=== PATIENT | male | born 1985 | race Caucasian/White ===

== ENCOUNTER 2021-10-28 06:41 | Emergency (ER) | payer OTHER, SELFPAY ==
[2021-10-28 06:44] VITALS: BP 140/115; PULSE 76; RESP 16; TEMP 36.4; O2SAT 98; BMI 31.6
[2021-10-28] MEDS: 0.9% Normal Saline 1,000 ML 1000 ML IV (07:31)
[2021-10-28] MEDS: Ondansetron 4 MG/2 ML Vial IV (07:32)
[2021-10-28] MEDS: Famotidine 200 MG/20 ML MDV 20 MG in 0.9% Normal Saline (Pres. free 8 ML 300 MG IV (07:32)
[2021-10-28] MEDS: Mag Hydrox/Al Hydrox/Simeth 30 ML UDC PO (07:32)
--- NOTE | 2021-10-28 07:35 | EX.ED.DYSGE1 ---
HPI History of Present Illness Chief Complaint: Abd Pain Narrative Narrative: Patient presents with epigastric pain that started about 2 weeks ago it is intermittent, he has had some nausea but no vomiting. His pain is worse when he eats. The pain does radiate to his back slightly, he has no right upper quadrant pain. He has no lower abdominal pain. No chest pain. No recent fevers or chills. He denies alcohol use, he is on a PPI, omeprazole, however he has not taken it in about a week due to the nausea. [facility] Medical History PTSD (post-traumatic stress disorder) Home Medications ondansetron 4 mg disintegrating tablet 4 mg PO Q8H #20 tabs 10/28/21 [Rx Last Taken Unknown] sucralfate 1 gram tablet (Carafate) 1 g PO BID #30 tabs 10/28/21 [Rx Last Taken Unknown] Allergy/AdvReac Type Severity Reaction Status Date / Time Penicillins [PCN] Allergy PT UNSURE Verified 10/28/21 06:42 OF REACTION Social History Smoking Status: Current every day smoker tobacco type: cigarettes ROS ROS ED ROS Narrative Past medical history: Reviewed, includes GERD and PTSD Medications: Reviewed Social history: Noncontributory Review of systems: All systems negative except as indicated General: No fever Eyes: No visual changes ENT: No upper airway congestion, normal voice Neck: No neck pain Cardiovascular: No chest pain Respiratory: No shortness of breath or cough Gastrointestinal: As in HPI Genitourinary: No dysuria Musculoskeletal: Denies myalgias no difficulty with ambulation Skin: No rash Neurological: No memory loss, confusion or any focal weakness Psych: No recent behavioral changes Hematologic: No easy bleeding or easy bruising EXAM Physical Exam Narrative Exam Narrative: Physical exam General: Well nourished, Well developed, No Acute Distress Head: Normocephalic, Atraumatic Eyes: Conjunctiva not pale ENT: Slightly dry mucous membranes Neck: Supple, Nontender, No lymphadenopathy Cardiovascular: Regular rate, Regular rhythm Respiratory: No distress, CTA bilaterally Abdomen: Soft, there is some epigastric tenderness, no guarding or rebound. No right upper quadrant abdominal pain negative Arriaga's. No lower abdominal pain. Back: Nontender, Normal Inspection. Negative for: CVA tenderness Extremities: Nontender, No edema Skin: Normal color, No rash Neurological: Alert, Normal Strength, Normal Sensation Psychological: Normal affect Const Vital Signs: 10/28/21 06:44 Temperature 97.6 F L Temperature Source Temporal Pulse Rate 76 Respiratory Rate 16 Blood Pressure 140/115 H Blood Pressure Mean 123 Pulse Ox 98 Oxygen Delivery Method Room Air MDM MDM MDM Narrative Medical decision making narrative: Patient has an unremarkable work-up. He did get some improvement with fluids Zofran and a GI cocktail. I will discharge him with Carafate, as well as Zofran. He is told to start taking his omeprazole, I will refer him to GI since I do believe he needs endoscopy. I do not believe this is gallbladder in etiology, he does not have any right upper quadrant pain and his labs are normal thus I do not believe he needs an emergent right upper quadrant ultrasound at this time. Lab Data Labs: Laboratory Results - last 24 hr 10/28/21 10/28/21 07:30 07:30 WBC 8.5 RBC 4.52 L Hgb 14.4 Hct 41.1 MCV 90.9 MCH 31.9 MCHC 35.0 RDW Std Deviation 42.1 RDW Coeff of [place] 12.7 Plt Count 207 MPV 11.7 Immature Gran % (Auto) 0.200 Neut % (Auto) 56.0 Lymph % (Auto) 28.0 [place] % (Auto) 9.5 Eos % (Auto) 5.4 H Baso % (Auto) 0.9 Absolute Neuts (auto) 4.8 Absolute Lymphs (auto) 2.39 Nucleated RBC % 0 Sodium 140 Potassium 3.6 Chloride 110 H Carbon Dioxide 26.0 Anion Gap 4 L BUN 10 Creatinine 0.93 Estim Creat Clear Calc 128.72 Est GFR (MDRD) Af Amer 117 Est GFR (MDRD) Non-Af 96 BUN/Creatinine Ratio 10.8 Glucose 89 Calcium 8.8 Total Bilirubin 0.70 AST 21 ALT 28 Alkaline Phosphatase 48 Total Protein 7.1 Albumin 3.5 Globulin 3.6 Albumin/Globulin Ratio 1.0 Lipase 66 L Discharge Plan Triage Chief Complaint: Abd Pain ED Provider: Issa Santacruz Dx/Rx/DC Orders Clinical Impression: Acute epigastric pain, Gastritis, Nausea Instructions: ED PEPTIC ULCER vs GASTRITIS Prescriptions: New sucralfate [Carafate] 1 gram tablet 1 g PO BID Qty: 30 0RF ondansetron 4 mg tablet,disintegrating 4 mg PO Q8H Qty: 20 0RF [facility] Referrals: Alexey Lawrence DO [Med Staff - Active Staff] - 5-7 Days [facility] [Primary Care Provider] - Disposition Disposition: Home, Self Care
[2021-10-28 07:53] LABS: Absolute Lymphocyte Count 2.39 X10^3/uL (0.83-4.51); Absolute Neutrophil Count 4.8 X10^3/uL (2.0-7.7); Basophil# 0.08 X10^3/uL; Basophil% 0.9 % (0-1); Eosinophil# 0.46 X10^3/uL; Eosinophils% 5.4 % (0-5); Hematocrit 41.1 % (40-54); Hemoglobin 14.4 g/dL (13.0-16.5); Lymphocyte # 2.39 X10^3/ul (0.83-4.51); Mean Corpuscular Hgb 31.9 pg (27.0-32.0); Mean Corpuscular Volume 90.9 fL (80-94); Mean Platelet Vol. 11.7 fl (6.2-12.0); Monocyte# 0.81 X10^3/uL; Monocyte% 9.5 % (0-10); NRBC Flagged by Analyzer 0 % (0-5); Neutrophil # 4.77 X10^3/uL (2.7-7.7); Platelet Count 207 K/mm3 (150-450); RBC Distribution Width CV 12.7 % (11.6-14.6); RBC Distribution Width SD 42.1 fl (35.1-43.9); Red Blood Count 4.52 M/mm3 (4.6-6.2); White Blood Count 8.5 K/mm3 (4.4-11.0)
[2021-10-28 08:08] LABS: AST(SGOT) 21 U/L (15-37); Alanine Aminotransfer ALT/SGPT 28 U/L (16-61); Albumin, Serum 3.5 g/dL (3.2-5.0); Alkaline Phosphatase 48 U/L (45-117); Anion Gap 4 (5-15); BUN 10 mg/dL (7-18); BUN/Creat Ratio 10.8 RATIO (10-20); Calcium,Total 8.8 mg/dL (8.5-10.1); Chloride 110 mmol/L (98-107); Creatinine, Serum 0.93 mg/dL (0.70-1.30); EST Glomerular Filtration Rate 96 mL/min (>60); Est Glom Filt Rate - Afr Amer 117 mL/min (>60); Estimated Creatinine Clearance 128.72 ml/min; Globulin 3.6 g/dL (2.2-4.2); Glucose 89 mg/dL (74-106); Lipase 66 U/L (73-393); Potassium 3.6 mmol/L (3.5-5.1); Protein, Total 7.1 g/dL (6.4-8.2); Sodium Level 140 mmol/L (136-145)
[2021-10-28 08:29] VITALS: BP 129/86; PULSE 74; RESP 16; O2SAT 99
== END 2021-10-28 08:30 | disposition home or self-care (01) ==
PROVIDERS: Emergency Provider Emergency Medicine; Visit Provider Emergency Medicine
DX: K29.70 Gastritis, unspecified, without bleeding (principal); F17.210 Nicotine dependence, cigarettes, uncomplicated
CPT/HCPCS: 80053; 83690; 85025; 96361; 96374; 96375; 99283; J7030; A4216; J2405; J3490

== ENCOUNTER 2021-10-28 20:31 | Inpatient (IN) | payer OTHER, SELFPAY ==
[2021-10-28 20:33] VITALS: BP 141/102; PULSE 53; RESP 28; TEMP 36.7; O2SAT 100; BMI 32.8
[2021-10-28 20:38] VITALS: BP 141/102; PULSE 53; RESP 28; TEMP 36.7; O2SAT 100
--- NOTE | 2021-10-28 20:49 | CT_ITS ---
We are attempting to reach an attending provider to discuss findings. An addendum with communication details will be sent when the communication is complete. INDICATION: Kidney Stone EXAMINATION: CT Abdomen And Pelvis W/O Contrast Injection TECHNIQUE: Helically acquired images were obtained of the abdomen and pelvis without the use of IV contrast. A radiation dose optimization technique was used for this scan. Oral contrast: None. COMPARISON: None FINDINGS: Evaluation of the solid organs and vascular structures is limited without intravenous contrast. Visualized lung bases: Unremarkable Liver: Unremarkable Gallbladder: 9 mm stone in the neck of the gallbladder. There is pericholecystic fat stranding. Spleen: Unremarkable Pancreas: Unremarkable Adrenal Glands: Unremarkable Kidneys: Unremarkable Vasculature: Unremarkable GI Tract: Unremarkable Lymphadenopathy: None Peritoneum: No ascites. Bladder: Unremarkable Reproductive organs: Unremarkable Bones/Soft tissues: No suspicious osseous or soft tissue lesions CT/Abdomen/Pelvis without Cont IMPRESSION: Findings concerning for acute cholecystitis. Electronically Signed: Cristhian Hinson MD at 22:15 EDT ,
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
[2021-10-28] MEDS: Ketorolac 15 MG/ML Vial IV (21:05)
[2021-10-28] MEDS: Ondansetron 4 MG/2 ML Vial IV (21:05)
[2021-10-28] MEDS: morphine 8 MG/ML Syringe IV (21:06)
[2021-10-28] MEDS: 0.9% Normal Saline 1,000 ML 250 ML IV (21:08)
[2021-10-28 22:34] LABS: Absolute Lymphocyte Count 2.16 X10^3/uL (0.83-4.51); Absolute Neutrophil Count 8.7 X10^3/uL (2.0-7.7); Basophil# 0.13 X10^3/uL; Eosinophil# 0.36 X10^3/uL; Eosinophils% 2.9 % (0-5); Hematocrit 44.4 % (40-54); Hemoglobin 15.5 g/dL (13.0-16.5); Lymphocyte # 2.16 X10^3/ul (0.83-4.51); Lymphocyte % 17.3 % (19-41); Mean Corp Hgb Conc 34.9 g/dL (32-36); Mean Corpuscular Hgb 31.4 pg (27.0-32.0); Mean Corpuscular Volume 90.1 fL (80-94); Mean Platelet Vol. 12.9 fl (6.2-12.0); Monocyte# 1.07 X10^3/uL; Monocyte% 8.6 % (0-10); NRBC Flagged by Analyzer 0 % (0-5); Neutrophil # 8.71 X10^3/uL (2.7-7.7); Platelet Count 238 K/mm3 (150-450); RBC Distribution Width CV 12.5 % (11.6-14.6); Red Blood Count 4.93 M/mm3 (4.6-6.2); White Blood Count 12.5 K/mm3 (4.4-11.0)
[2021-10-28] MEDS: HYDROmorphone 1 MG/ML Syringe IV (22:35)
[2021-10-28] MEDS: Clindamycin 600 MG/50 ML BAG 100 MG IV (22:42)
[2021-10-28 22:44] VITALS: BP 163/91; PULSE 52; RESP 15; O2SAT 98
[2021-10-28 22:51] LABS: AST(SGOT) 18 U/L (15-37); Alanine Aminotransfer ALT/SGPT 31 U/L (16-61); Alkaline Phosphatase 57 U/L (45-117); Bilirubin, Direct 0.17 mg/dL (0.00-0.30); Globulin 3.9 g/dL (2.2-4.2); Lipase 73 U/L (73-393); Protein, Total 7.9 g/dL (6.4-8.2)
--- NOTE | 2021-10-28 22:54 | CON.PCM.SX_ITS ---
Assessment & Plan Assessment/Plan (1) Acute cholecystitis due to biliary calculus: PLAN: My plan is to perform a laparoscopic cholecystectomy with intraoperative cholangiogram. The planned surgical procedure was discussed extensively with the patient. The risks, benefits, anticipated outcomes and possible complication were mentioned. My staff has also explained the procedure in understandable terms and the patient was given the option to take printed material concerning the planned procedure. The patient had the opportunity to ask questions concerning the planned procedure. The patient freely consents to the planned procedure. HPI Consult Data Date of Consult: 10/28/21 HPI Narrative HPI Narrative: SHEKHAR FREDERICK, Patient is a 36-year-old male who was seen earlier today for abdomi nal pain on the left side.? He presents because the pain is much more intense and associated with nausea and vomiting.? He did have nausea and vomiting this morning as well.? He denies fever, chills night sweats.? He denies trauma to his abdomen, flank or scrotum.? He denies dysuria, frequency, urgency or hematuria.? He denies history of renal or ureteral lithiasis.? He denies family history of renal or ureterolithiasis.? He denies scrotal swelling. Prior similar symptoms: Yes Recent Illness/Hospitalization: Yes CT scan of the abdomen showed he has a 9 mm stone in the neck of his gallbladder with pericholecystic fat stranding [facility] Medical History Depression PTSD (post-traumatic stress disorder) Home Medications omeprazole 40 mg capsule,delayed release 40 mg PO DAILY 10/28/21 [History Last Taken Unknown] ondansetron 4 mg disintegrating tablet 4 mg PO Q8H #20 tabs 10/28/21 [Rx Last Taken Unknown] sertraline 50 mg tablet 50 mg PO DAILY 10/28/21 [History Last Taken Unknown] sucralfate 1 gram tablet (Carafate) 1 g PO BID #30 tabs 10/28/21 [Rx Last Taken Unknown] Allergy/AdvReac Type Severity Reaction Status Date / Time Penicillins [PCN] Allergy PT UNSURE Verified 10/28/21 06:42 OF REACTION Social History household members: none Smoking Status: Current every day smoker tobacco type: cigarettes substance use type: does not use ROS Constitutional Constitutional: Denies chills, fatigue or fever(s) Cardiovascular Cardiovascular: Denies chest pain Respiratory/Chest Respiratory/Chest: Denies cough or dyspnea Gastrointestinal Gastrointestinal: Reports abdominal pain, nausea and vomiting; Denies constipation or diarrhea Genitourinary Genitourinary: Reports flank pain Lab / Micro Data Result Diagrams: 10/28/21 21:11 Labs: Laboratory Results - last 24 hr 10/28/21 21:11: WBC 12.5 H, RBC 4.93, Hgb 15.5, Hct 44.4, MCV 90.1, MCH 31.4, MCHC 34.9, RDW Std Deviation 41.0, RDW Coeff of Ann Marie 12.5, Plt Count 238, MPV 12.9 H, Immature Gran % (Auto) 0.200, Neut % (Auto) 70.0, Lymph % (Auto) 17.3 L, [place] % (Auto) 8.6, Eos % (Auto) 2.9, Baso % (Auto) 1.0, Absolute Neuts (auto) 8.7 H, Absolute Lymphs (auto) 2.16, Nucleated RBC % 0 10/28/21 21:11: Total Bilirubin 1.00, Direct Bilirubin 0.17, AST 18, ALT 31, Alkaline Phosphatase 57, Total Protein 7.9, Albumin 4.0, Globulin 3.9, Lipase 73 Radiology Impression Abdomen/Pelvis CT 10/28/21 20:49 IMPRESSION: Findings concerning for acute cholecystitis. Electronically Signed: Cristhian Hinson MD at 22:15 EDT , ADDENDUM: 10/28/21 2230 IMPRESSION: Findings concerning for acute cholecystitis. N.B. : The above Results were Read Back by Cristhian Hinson MD to Stanley Jolley MD, and understanding confirmed on 10/28/2021 22:23:24 (ET). Electronically Signed: Cristhian Hinson MD at 22:15 EDT ,
--- NOTE | 2021-10-28 23:01 | NURSING ---
[facility] FOR THE PATIENT. NO ONE ANSWERED THE TRANSFER LINE AND HAD TO LEAVE A VM. I LEFT A MESSAGE ASKING ABOUT TRANSFERRING THE PATIENT AND WAITING FOR A CALL BACK.
[2021-10-28 23:12] VITALS: BP 170/99; PULSE 49; RESP 16; TEMP 37.1; O2SAT 98
[2021-10-28 23:28] VITALS: BMI 32.5
[2021-10-28 23:45] VITALS: BP 163/102; PULSE 53; RESP 18; TEMP 36.8; O2SAT 95
[2021-10-29] VITALS (11 sets, daily range): BP systolic 88–169; BP diastolic 61–106; PULSE 58–77; RESP 16–67; TEMP 36.2–37.2; O2SAT 94–100
[2021-10-29] MEDS: HYDROmorphone 1 MG/ML Syringe IV ×4 (00:05→19:43)
[2021-10-29] MEDS: 0.9% Saline Lock 10 ML Syringe IV ×3 (00:05→07:02)
[2021-10-29] MEDS: 0.9% Normal Saline 1,000 ML 100 ML IV ×2 (00:10→11:15)
[2021-10-29 05:06] LABS: Absolute Lymphocyte Count 2.49 X10^3/uL (0.83-4.51); Absolute Neutrophil Count 11.2 X10^3/uL (2.0-7.7); Basophil% 0.6 % (0-1); Eosinophils% 0.6 % (0-5); Hematocrit 43.8 % (40-54); Hemoglobin 15.1 g/dL (13.0-16.5); Lymphocyte # 2.49 X10^3/ul (0.83-4.51); Lymphocyte % 15.9 % (19-41); Mean Corp Hgb Conc 34.5 g/dL (32-36); Mean Corpuscular Hgb 32.1 pg (27.0-32.0); Mean Platelet Vol. 11.9 fl (6.2-12.0); Monocyte# 1.69 X10^3/uL; Monocyte% 10.8 % (0-10); NRBC Flagged by Analyzer 0 % (0-5); Neutrophil # 11.22 X10^3/uL (2.7-7.7); Neutrophil % 71.7 % (47-70); POSITIVE DIFFERENTIAL YES; Platelet Count 224 K/mm3 (150-450); RBC Distribution Width CV 12.6 % (11.6-14.6); Red Blood Count 4.71 M/mm3 (4.6-6.2); White Blood Count 15.7 K/mm3 (4.4-11.0)
[2021-10-29 05:18] LABS: Differential Indicated SCAN CRITERIA MET
[2021-10-29 05:29] LABS: ALB/GLOB Ratio 0.9 RATIO (0.9-2.4); AST(SGOT) 19 U/L (15-37); Alanine Aminotransfer ALT/SGPT 30 U/L (16-61); Albumin, Serum 3.4 g/dL (3.2-5.0); Alkaline Phosphatase 51 U/L (45-117); Amylase 32 U/L (25-115); Anion Gap 5 (5-15); BUN 7 mg/dL (7-18); Calcium,Total 8.5 mg/dL (8.5-10.1); Chloride 109 mmol/L (98-107); EST Glomerular Filtration Rate 89 mL/min (>60); Est Glom Filt Rate - Afr Amer 108 mL/min (>60); Estimated Creatinine Clearance 119.71 ml/min; Globulin 3.6 g/dL (2.2-4.2); Glucose 103 mg/dL (74-106); Lipase 54 U/L (73-393); Potassium 4.2 mmol/L (3.5-5.1); Sodium Level 142 mmol/L (136-145)
[2021-10-29 05:42] LABS: Differential Comment SCANNED
--- NOTE | 2021-10-29 05:55 | EKG12_ITS ---
Test Reason : PRE-OP Blood Pressure : / mmHG Vent. Rate : 046 BPM Atrial Rate : 046 BPM P-R Int : 142 ms QRS Dur : 088 ms QT Int : 450 ms P-R-T Axes : 046 023 027 degrees QTc Int : 393 ms Marked sinus bradycardia Abnormal ECG Confirmed by DELANO WHITE, SURAJ ([id number]), market editor ISABELL HORNE ([id number]) on 10/30/2021 9:14:27 AM Referred By: NORIS Confirmed By:SURJA WICK MD
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
[2021-10-29] MEDS: HYDROmorphone 0.5 MG/0.5 ML SYRINGE IV (09:39)
[2021-10-29] MEDS: Lactated Ringers 1,000 ML 15 ML IV ×2 (11:30→14:10)
[2021-10-29] MEDS: Clindamycin 900 MG/50 ML BAG 75 MG IV (12:21)
[2021-10-29] MEDS: Bupivacaine 0.25% 30 ML Vial (12:42)
--- NOTE | 2021-10-29 12:45 | GALL_PTH ---
PATIENT: SHEKHAR FREDERICK LOC: [facility] U#:[id number] AGE/SX: 36/M ROOM: MI310 RE10/30/[address]: Dr. Jatinder Odonnell MD : 1985 BED: 1 DIS: 11/01/2021 SPEC #: [id number] RECD: 10/29/21 15:13 STATUS: ESTRELLITA MATTHEWS #: [id number] DOV: 10/29/21 12:[address]: Jatinder Odonnell DEPT: SURGICAL PATHOLOGY RECD BY: Estefany Marcus ENTERED: 10/30/21 06:55 SP TYPE: OBEY PIERCE DR: Dr. 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 Cholelithiasis. AM:arianne 10/31/2021 MICROSCOPIC DESCRIPTION Slides are reviewed. GROSS DESCRIPTION Received is one container labeled with the patient's name and designated gallbladder. The specimen consists of a gallbladder measuring 8.5 cm in length and up to 3.5 cm in diameter. The external surface is pink-vance, smooth and glistening for the most part. Focally it is granular, hemorrhagic and contains cautery artifact. The gallbladder does not contain a significant amount of bile and contains five variable sized orange, mulberry stones measuring in aggregate 2.5 x 2 x 1 cm and 0.3 to 1 cm in greatest dimension. The mucosa also shows several yellowish streaks consistent with cholesterolosis. The mucosa is bile-stained and without any mass lesions. The gallbladder wall measures up to 0.6 cm in thickness. Pipe Bending Machine Operator sections from the gallbladder and the cystic duct are submitted in one cassette. / ANNABELLE:arianne 10/30/2021 TC:2 CPT: 95697
--- NOTE | 2021-10-29 13:13 | CASEMGMT ---
IVY CM: Call received from the [facility] clinical intake requesting admission date/time and diagnosis which were provided. No additional information requested and call ended by their digital sales representative. Abril Hansen RN CM
--- NOTE | 2021-10-29 13:36 | PCM.OPRPT ---
Problems Associated Problem List Diagnoses (1) Acute cholecystitis due to biliary calculus: (2) Acute gangrenous cholecystitis: Report of Operation Date of Procedure: 10/29/21 Pre-Operative Diagnosis: Acute cholecystitis with cholelithiasis Post-Operative Diagnosis: Acute gangrenous cholecystitis with cholelithiasis Surgery/Procedure Performed:: Laparoscopic cholecystectomy Surgeon: Jatinder Odonnell decorating machine operator: Jimmie Gastelum Type of Anesthesia: General Anesthesiologist: Marv Ahmadi Specimen's removed: Gangrenous gallbladder Drains: 15 round [place] Estimated Blood Loss (mL): 150 mL Description of Procedure: Patient was brought into the operating room. Placed in the supine position. Under excellent general anesthetic the abdomen was sterilely prepped and draped in the usual fashion. Local was injected infraumbilically. Dissection was carried down to the fascia. The fascia was grasped with a Kendy. Varies needle was placed inside the abdomen. The abdomen was insufflated to 15 torr. A 10/12 trocar was placed without difficulty. The patient was placed in the head up and rotated to the left position. A subxiphoid #5 trocar was placed, inferior to this another #5 trocar was placed, laterally a #5 trocar was placed. All these were placed under direct visualization without injury to underlying structures. Moderate amount of adhesions were taken down from the gallbladder it was noted to be black and gangrenous. I aspirated out black fluid sent this for culture and sensitivity everything around this gallbladder was thick it was difficult there was no way I was going to be able to dissect down and go from bottom up. I grabbed the falciform ligament I dissected from the top down of the gallbladder dissecting free the cystic artery and the posterior branch of the cystic artery away from the gallbladder itself. I also identified the cystic duct dissecting down this further as I felt comfortable doing without getting too close to the cystic duct hepatic duct juncture. Once I had dissected everything free I placed hemoclips proximally and distally on the artery and ligated the artery placed another clip on the posterior branch of the cystic artery which was bleeding a little bit. Once I did this I had good hemostasis. I placed a 0 Vicryl Endoloop around the gallbladder down to the cystic duct and tied it off and then cut the gallbladder off of this. I placed the specimen in a specimen bag and delivered through the umbilical port. After this I irrigated the right upper quadrant for remarkably I saw no further bleeding when throughout the case everything was oozy I irrigated out with over 2 L of normal saline irrigation. I placed a 15 round [place] drain through the lateral port and sutured it to the skin with a 3-0 nylon. And I placed the drain in the gallbladder fossa after this I inspected the liver bed 1 more time good pneumostasis was noted. I remove the trochars under direct visualization good and the stasis was noted. Fascia the umbilical port was closed with a [id number] stitch of 0 Vicryl. Skin incisions were closed with subcuticular stitches of 4-0 Monocryl. Steri-Strips were applied sterile dressings were applied drain sponges were applied and the patient tolerated the procedure well. Admit VTE Documentation VTE Present on Admission: No VTE Mechan Device Prophylaxis: SCD's VTE Pharm Prophylaxis ordered?: No Reason prophylaxis not ordered:: Treatment Not Indicated
--- NOTE | 2021-10-29 14:34 | CASEMGMT ---
Spoke with Jonathon at [facility]. Requested clinicals to be faxed. Faxed at this time to [phone].
[2021-10-29] MEDS: 0.9% Normal Saline 1,000 ML 75 ML IV (15:30)
[2021-10-29] MEDS: oxyCODONE 5 MG Tablet PO ×2 (17:39→22:21)
[2021-10-29] MEDS: Clindamycin 600 MG/50 ML BAG 100 MG IV (22:07)
[2021-10-30 02:20] VITALS: BP 123/74; PULSE 92; RESP 18; TEMP 36.7; O2SAT 98
[2021-10-30] MEDS: 0.9% Normal Saline 1,000 ML 75 ML IV ×2 (05:00→18:25)
[2021-10-30] MEDS: oxyCODONE 5 MG Tablet PO ×5 (05:02→23:35)
[2021-10-30 06:16] LABS: Absolute Neutrophil Count 11.2 X10^3/uL (2.0-7.7); Basophil# 0.01 X10^3/uL; Basophil% 0.1 % (0-1); Hematocrit 33.9 % (40-54); Hemoglobin 11.9 g/dL (13.0-16.5); Lymphocyte % 13.7 % (19-41); Mean Corp Hgb Conc 35.1 g/dL (32-36); Mean Corpuscular Hgb 32.9 pg (27.0-32.0); Mean Corpuscular Volume 93.6 fL (80-94); Mean Platelet Vol. 11.9 fl (6.2-12.0); Monocyte# 1.93 X10^3/uL; Monocyte% 12.6 % (0-10); NRBC Flagged by Analyzer 0 % (0-5); Neutrophil # 11.21 X10^3/uL (2.7-7.7); Neutrophil % 73.1 % (47-70); POSITIVE DIFFERENTIAL YES; Platelet Count 167 K/mm3 (150-450); RBC Distribution Width CV 12.9 % (11.6-14.6); RBC Distribution Width SD 44.5 fl (35.1-43.9); Red Blood Count 3.62 M/mm3 (4.6-6.2); White Blood Count 15.3 K/mm3 (4.4-11.0)
[2021-10-30 06:21] LABS: Differential Indicated SCAN CRITERIA MET
[2021-10-30 06:40] LABS: Differential Comment SCANNED
[2021-10-30 06:45] LABS: ALB/GLOB Ratio 0.8 RATIO (0.9-2.4); AST(SGOT) 109 U/L (15-37); Alanine Aminotransfer ALT/SGPT 133 U/L (16-61); Albumin, Serum 2.6 g/dL (3.2-5.0); Alkaline Phosphatase 45 U/L (45-117); Anion Gap 4 (5-15); BUN 11 mg/dL (7-18); BUN/Creat Ratio 13.3 RATIO (10-20); Calcium,Total 8.1 mg/dL (8.5-10.1); Chloride 108 mmol/L (98-107); Creatinine, Serum 0.83 mg/dL (0.70-1.30); EST Glomerular Filtration Rate 111 mL/min (>60); Est Glom Filt Rate - Afr Amer 134 mL/min (>60); Estimated Creatinine Clearance 144.23 ml/min; Globulin 3.4 g/dL (2.2-4.2); Glucose 103 mg/dL (74-106); Potassium 3.9 mmol/L (3.5-5.1); Sodium Level 139 mmol/L (136-145)
--- NOTE | 2021-10-30 07:03 | PN.HOSP_ITS ---
Subjective Subjective Feels good. Some abd pain, but improved. Objective Data Objective Data Vital Signs: Vital Signs Temp Pulse Resp BP Pulse Ox O2 Del Method O2 Flow Rate 36.7 C 92 18 123/74 H 98 Room Air 8 10/30/21 02:20 10/30/21 02:20 10/30/21 02:20 10/30/21 02:20 10/30/21 02:20 10/30/21 02:20 10/29/21 15:00 Oxygen Flow Rate (L/min) 8 Oxygen Delivery Method Room Air Weight: 119 kg Body Mass Index (BMI) 32.5 Intake & Output: Intake and Output for Last 24 Hours 10/28/21 10/29/21 10/30/21 23:59 23:59 23:59 Intake Total 50 / 50 4523.00 / 4523.00 2053 Output Total Balance 50 / 50 4318.00 / 4318.00 2053 Medical Nutrition Assessment Dietitian: Malnutrition Criteria Met Start: 10/29/21 11:00 Freq: Status: Active Protocol: Document 10/29/21 09:49 AG (Rec: 10/29/21 11:00 [id number]) Nutrition Malnutrition Evidence of Malnutrition Exists Yes Malnutrition (severe): Acute Illness/Injury Evidenced By Suboptimal Energy Intake ( Severe),Weight Loss (Severe) Clinical Problem Acute Disease or Injury Related Malnutrition Etiology severe, acute malnutrition related to GI dysfunction, nausea, vomiting, and emesis Signs/Symptoms as evidenced by estimated PO intake meeting <50% of estimated energy needs >5 days ; unintentional wt loss of 12. 6#/4.5% x 2 weeks Status Active Problem Recommendation Dietitian Recommendations/Changes recommend advance diet as tolerated to regular, low fat. Ensure Clear 120mL 4x/day w/ medpass when diet advanced. Lab / Micro Data Result Diagrams: 10/30/21 05:40 10/30/21 05:40 Labs: Laboratory Results - last 24 hr 10/30/21 05:40: WBC 15.3 H, RBC 3.62 L, Hgb 11.9 L, Hct 33.9 L, MCV 93.6, MCH 32.9 H, MCHC 35.1, RDW Std Deviation 44.5 H, RDW Coeff of [place] 12.9, Plt Count 167, MPV 11.9, Immature Gran % (Auto) 0.500, Neut % (Auto) 73.1 H, Lymph % (Auto) 13.7 L, [place] % (Auto) 12.6 H, Eos % (Auto) 0.0, Baso % (Auto) 0.1, Absolute Neuts (auto) 11.2 H, Absolute Lymphs (auto) 2.10, Nucleated RBC % 0, Differential Comment SCANNED, Diff Path Review July10/30/21 05:40: Sodium 139, Potassium 3.9, Chloride 108 H, Carbon Dioxide 27.0, Anion Gap 4 L, BUN 11, Creatinine 0.83, Estim Creat Clear Calc 144.23, Est GFR (MDRD) Af Amer 134, Est GFR (MDRD) Non-Af 111, BUN/Creatinine Ratio 13.3, Glucose 103, Calcium 8.1 L, Total Bilirubin 0.80, AST 109 H, ALT 133 H, Alkaline Phosphatase 45, Total Protein 6.0 L, Albumin 2.6 L, Globulin 3.4, Albumin/Globulin Ratio 0.8 L Physical Exam Const alert and no apparent distress Resp normal respiratory effort, no retractions, no use of accessory muscles and clear to auscultation bilaterally Cardio regular rate, regular rhythm, S1 normal heart sound and S2 normal heart sound GI normal to inspection, nondistended, normoactive bowel sounds, soft to palpation, non-tender and non-distended Extremity normal to inspection Assessment & Plan Assessment/Plan (1) Acute cholecystitis due to biliary calculus: PLAN: lap darren 10/29 (2) HTN (hypertension): PLAN: Likely exacerbated due to the acute cholecystitis. Cannot rule out longstanding hypertension as I have no baseline vitals to evaluate. Would add as needed agents for systolic greater than 180. Stable PLAN: Plan Thank you for the consult. The hospital service will continue to follow along. Medically stable for discharge whenever felt appropriate by general surgery. Charges/Coding Visit Charges Inpatient E&M: 70988 Subs Hosp L2
[2021-10-30 08:42] VITALS: BP 126/78; PULSE 75; RESP 18; TEMP 36.8; O2SAT 99
[2021-10-30] MEDS: Sertraline 50 MG Tablet PO (08:57)
[2021-10-30 09:33] VITALS: O2SAT 95
--- NOTE | 2021-10-30 09:40 | CASEMGMT ---
RN CM Face to Face with patient for initial transition planning/care coordination assessment. RN CM introduced self and role at [facility]. Patient lying in bed, alert and oriented, father at bedside. Patient willing to participate in assessment and is able to answer all questions appropriately. Care providers, pharmacy, and demographics verified. Patient wishes to discharge home, denies need for home health at this time. Patient states he has no further needs or concerns at this time. CM to follow for discharge planning needs that may arise. PCP: Odilon Duckworth [place] Specialists: none Preferred Pharmacy: [facility] Retail at discharge; [place] Prescription Benefit: [place] Living Will/HPOA: none LNOK: Friend, Thomas Living Arrangements: Patient lives alone in a 2nd floor apartment with flight of stairs. Patient states he is independent and able to ambulate stairs. Transportation: self, friend Thomas DME/HHC: Patient states he has Cpap at home. Denies further DME. No previous HHC. Disposition Plan: Patient to discharge home with follow-up plans in place. Nieves CARROLL, RN, CM
[2021-10-30 12:17] LABS: Pathologist Review Reviewed
[2021-10-30 12:19] LABS: Pathologist Review Reviewed
--- NOTE | 2021-10-30 13:47 | PN.SURG_ITS ---
Subjective Subjective Pain has significantly improved. ARACELI drainage is coming down.He has not passed any flatus or had a bowel movement. Objective Data Objective Data Dressings are dry. ARACELI drain has serous fluid. Vital Signs: Vital Signs Temp Pulse Resp BP Pulse Ox O2 Del Method O2 Flow Rate 98.3 F 75 18 126/78 H 95 Room Air 8 10/30/21 08:42 10/30/21 08:42 10/30/21 08:42 10/30/21 08:42 10/30/21 09:33 10/30/21 09:33 10/29/21 15:00 Oxygen Flow Rate (L/min) 8 Oxygen Delivery Method Room Air Weight: 262 lb 5.601 oz Body Mass Index (BMI) 32.5 Intake & Output: Intake and Output for Last 24 Hours 10/28/21 10/29/21 10/30/21 23:59 23:59 23:59 Intake Total 50 / 50 4523.00 / 4523.00 2053 Output Total Balance 50 / 50 4318.00 / 4318.00 2043 Medical Nutrition Assessment Dietitian: Malnutrition Criteria Met Start: 10/29/21 11:00 Freq: Status: Active Protocol: Document 10/29/21 09:49 AG (Rec: 10/29/21 11:00 [id number]) Nutrition Malnutrition Evidence of Malnutrition Exists Yes Malnutrition (severe): Acute Illness/Injury Evidenced By Suboptimal Energy Intake ( Severe),Weight Loss (Severe) Clinical Problem Acute Disease or Injury Related Malnutrition Etiology severe, acute malnutrition related to GI dysfunction, nausea, vomiting, and emesis Signs/Symptoms as evidenced by estimated PO intake meeting <50% of estimated energy needs >5 days ; unintentional wt loss of 12. 6#/4.5% x 2 weeks Status Active Problem Recommendation Dietitian Recommendations/Changes recommend advance diet as tolerated to regular, low fat. Ensure Clear 120mL 4x/day w/ medpass when diet advanced. Lab / Micro Data Result Diagrams: 10/30/21 05:40 10/30/21 05:40 Labs: Laboratory Results - last 24 hr 10/29/21 04:28: Diff Path Review Reviewed 10/30/21 05:40: WBC 15.3 H, RBC 3.62 L, Hgb 11.9 L, Hct 33.9 L, MCV 93.6, MCH 32.9 H, MCHC 35.1, RDW Std Deviation 44.5 H, RDW Coeff of [place] 12.9, Plt Count 167, MPV 11.9, Immature Gran % (Auto) 0.500, Neut % (Auto) 73.1 H, Lymph % (Auto) 13.7 L, [place] % (Auto) 12.6 H, Eos % (Auto) 0.0, Baso % (Auto) 0.1, Absolute Neuts (auto) 11.2 H, Absolute Lymphs (auto) 2.10, Nucleated RBC % 0, Differential Comment SCANNED, Diff Path Review Reviewed 10/30/21 05:40: Sodium 139, Potassium 3.9, Chloride 108 H, Carbon Dioxide 27.0, Anion Gap 4 L, BUN 11, Creatinine 0.83, Estim Creat Clear Calc 144.23, Est GFR (MDRD) Af Amer 134, Est GFR (MDRD) Non-Af 111, BUN/Creatinine Ratio 13.3, Glucose 103, Calcium 8.1 L, Total Bilirubin 0.80, AST 109 H, ALT 133 H, Alkaline Phosphatase 45, Total Protein 6.0 L, Albumin 2.6 L, Globulin 3.4, Albumin/Globulin Ratio 0.8 L Micro: Microbiology 10/29/21 Unknown Incision/Surgical Site Gram Stain - Final 10/29/21 Unknown Incision/Surgical Site Wound Culture - Preliminary No growth-Final to follow Assessment & Plan Assessment/Plan (1) Acute gangrenous cholecystitis: PLAN: Postoperative day #1 Hemoglobin did significantly go down 3 g. Do not have cultures and sensitivity from the gallbladder as of yet. Not ready for discharge today.
[2021-10-30 13:55] VITALS: BP 135/79; PULSE 64; RESP 18; TEMP 37.2; O2SAT 98
[2021-10-30 18:30] VITALS: BP 133/75; PULSE 75; RESP 18; TEMP 37.2; O2SAT 99
[2021-10-30 20:32] VITALS: BP 154/94; PULSE 68; RESP 18; TEMP 37.1; O2SAT 100
[2021-10-30] MEDS: Clindamycin 600 MG/50 ML BAG 100 MG IV (21:51)
[2021-10-30 23:26] LABS: Bacteria 0 SEEN /hpf (None Seen); Mucous, Urine 0 SEEN /hpf (<or=2+); Red Blood Cells-Urine 0 SEEN /hpf (0-5); Squamous Epithelial Cells - UA 0 SEEN /hpf (0-5); White Blood Cells 0 SEEN /hpf (0-5)
[2021-10-30 23:27] LABS: Color, Urine Yellow (Yellow); Glucose, Dipstick Normal (Normal); Ketone-Dipstick Negative (Negative); Leukocyte Esterase-Dipstick Negative /ul (Negative); Nitrite-Dipstick Negative (Negative); Occult Blood-Urine Negative /ul (Negative); Protein-Dipstick Negative (Negative); Urine Bilirubin Dipstick Negative (Negative); Urine Clarity Clear (Clear); Urine Urobilinogen Normal (Normal)
[2021-10-31] MEDS: MELATONIN 3 MG TABLET PO (00:20)
[2021-10-31 03:28] VITALS: BP 124/83; PULSE 71; RESP 18; TEMP 36.9; O2SAT 98
[2021-10-31] MEDS: oxyCODONE 5 MG Tablet PO ×5 (03:37→22:56)
--- NOTE | 2021-10-31 07:04 | PN.HOSP_ITS ---
Subjective Subjective Feels good. Some abdomen. Objective Data Objective Data Vital Signs: Vital Signs Temp Pulse Resp BP Pulse Ox O2 Del Method O2 Flow Rate 36.9 C 71 18 124/83 H 98 Room Air 8 10/31/21 03:28 10/31/21 03:28 10/31/21 03:28 10/31/21 03:28 10/31/21 03:28 10/31/21 03:28 10/29/21 15:00 Oxygen Flow Rate (L/min) 8 Oxygen Delivery Method Room Air Weight: 119 kg Body Mass Index (BMI) 32.5 Intake & Output: Intake and Output for Last 24 Hours 10/29/21 10/30/21 10/31/21 23:59 23:59 23:59 Intake Total 4523.00 / 4523.00 4408 / 4408 1999 Output Total 205 / 205 Balance 4318.00 / 4318.00 4388 / 4388 1979 / 1979 Medical Nutrition Assessment Dietitian: Malnutrition Criteria Met Start: 10/29/21 11:00 Freq: Status: Active Protocol: Document 10/29/21 09:49 AG (Rec: 10/29/21 11:00 AG [id number]) Nutrition Malnutrition Evidence of Malnutrition Exists Yes Malnutrition (severe): Acute Illness/Injury Evidenced By Suboptimal Energy Intake ( Severe),Weight Loss (Severe) Clinical Problem Acute Disease or Injury Related Malnutrition Etiology severe, acute malnutrition related to GI dysfunction, nausea, vomiting, and emesis Signs/Symptoms as evidenced by estimated PO intake meeting <50% of estimated energy needs >5 days ; unintentional wt loss of 12. 6#/4.5% x 2 weeks Status Active Problem Recommendation Dietitian Recommendations/Changes recommend advance diet as tolerated to regular, low fat. Ensure Clear 120mL 4x/day w/ medpass when diet advanced. Lab / Micro Data Result Diagrams: 10/30/21 05:40 10/30/21 05:40 Labs: Laboratory Results - last 24 hr 10/29/21 04:28: Diff Path Review Reviewed 10/30/21 05:40: Diff Path Review Reviewed 10/30/21 23:19: Urine Color Yellow, Urine Clarity Clear, Urine pH 6.0, Ur Specific [place] 1.010, Urine Protein Negative, Urine Glucose (UA) Normal, Urine Ketones Negative, Urine Occult Blood Negative, Urine Nitrite Negative, Urine Bilirubin Negative, Urine Urobilinogen Normal, Ur Leukocyte Esterase Negative, Urine RBC 0 SEEN, Urine WBC 0 SEEN, Ur Squamous Epith Cells 0 SEEN, Urine Bacteria 0 SEEN, Urine Mucus 0 SEEN Micro: Microbiology 10/29/21 Unknown Incision/Surgical Site Gram Stain - Final 10/29/21 Unknown Incision/Surgical Site Wound Culture - Preliminary No growth-Final to follow Physical Exam Const alert and no apparent distress GI GI Narrative: slight RUQ abdominal pain Neuro oriented x3 Sensorium / Orientation: awake and alert Psych affect normal Assessment & Plan Assessment/Plan (1) Acute cholecystitis due to biliary calculus: PLAN: lap darren 10/29 for gangrenous gallbladder. (2) HTN (hypertension): PLAN: Likely exacerbated due to the acute cholecystitis. Since has stabilized No treatment at this time. PLAN: Plan Thank you for the consult. The hospital service will continue to follow along. Medically stable for discharge whenever felt appropriate by general surgery. Charges/Coding Visit Charges Inpatient E&M: 89730 Subs Hosp L1
[2021-10-31 08:12] VITALS: BP 128/88; PULSE 65; RESP 16; TEMP 36.9; O2SAT 96
[2021-10-31] MEDS: 0.9% Normal Saline 1,000 ML 75 ML IV ×2 (08:22→21:33)
[2021-10-31] MEDS: Sertraline 50 MG Tablet PO (10:49)
[2021-10-31] MEDS: Clindamycin 600 MG/50 ML BAG 100 MG IV ×2 (13:22→21:41)
--- NOTE | 2021-10-31 14:31 | PN.SURG_ITS ---
Subjective Subjective Pain is slowly improving but still needing pain meds every 4 hours.Patient has not had any bowel movements as of yet. Objective Data Objective Data Abdomen is soft. Serous drainage from the ARACELI. Vital Signs: Vital Signs Temp Pulse Resp BP Pulse Ox O2 Del Method O2 Flow Rate 98.4 F 65 16 128/88 H 96 Room Air 8 10/31/21 08:12 10/31/21 08:12 10/31/21 08:12 10/31/21 08:12 10/31/21 08:12 10/31/21 08:23 10/29/21 15:00 Oxygen Flow Rate (L/min) 8 Oxygen Delivery Method Room Air Weight: 262 lb 5.601 oz Body Mass Index (BMI) 32.5 Intake & Output: Intake and Output for Last 24 Hours 10/29/21 10/30/21 10/31/21 23:59 23:59 23:59 Intake Total 4523.00 / 4523.00 4408 / 4408 3904 / 3904 Output Total 205 / 205 20 / 20 40 / 40 Balance 4318.00 / 4318.00 4388 / 4388 3864 / 3864 Medical Nutrition Assessment Dietitian: Malnutrition Criteria Met Start: 10/29/21 11:00 Freq: Status: Active Protocol: Document 10/29/21 09:49 AG (Rec: 10/29/21 11:00 AG [id number]) Nutrition Malnutrition Evidence of Malnutrition Exists Yes Malnutrition (severe): Acute Illness/Injury Evidenced By Suboptimal Energy Intake ( Severe),Weight Loss (Severe) Clinical Problem Acute Disease or Injury Related Malnutrition Etiology severe, acute malnutrition related to GI dysfunction, nausea, vomiting, and emesis Signs/Symptoms as evidenced by estimated PO intake meeting <50% of estimated energy needs >5 days ; unintentional wt loss of 12. 6#/4.5% x 2 weeks Status Active Problem Recommendation Dietitian Recommendations/Changes recommend advance diet as tolerated to regular, low fat. Ensure Clear 120mL 4x/day w/ medpass when diet advanced. Lab / Micro Data Result Diagrams: 10/30/21 05:40 10/30/21 05:40 Labs: Laboratory Results - last 24 hr 10/30/21 23:19: Urine Color Yellow, Urine Clarity Clear, Urine pH 6.0, Ur Specific [place] 1.010, Urine Protein Negative, Urine Glucose (UA) Normal, Urine Ketones Negative, Urine Occult Blood Negative, Urine Nitrite Negative, Urine Bilirubin Negative, Urine Urobilinogen Normal, Ur Leukocyte Esterase Negative, Urine RBC 0 SEEN, Urine WBC 0 SEEN, Ur Squamous Epith Cells 0 SEEN, Urine Bacteria 0 SEEN, Urine Mucus 0 SEEN Micro: Microbiology 10/29/21 Unknown Incision/Surgical Site Gram Stain - Final 10/29/21 Unknown Incision/Surgical Site Wound Culture - Final No growth aerobically. 10/29/21 Unknown Incision/Surgical Site Anaerobic Culture - Preliminary No growth in 48 hours. Assessment & Plan Assessment/Plan (1) Acute gangrenous cholecystitis: PLAN: Need to check a CBC today and tomorrow. We will keep the patient 1 more night and discharge him hopefully tomorrow hopefully he will have a bowel movement. Culture and sensitivity is not back yet.
[2021-10-31 15:07] VITALS: BP 128/78; PULSE 66; RESP 18; TEMP 37.1; O2SAT 97
[2021-10-31 15:16] LABS: Absolute Lymphocyte Count 2.44 X10^3/uL (0.83-4.51); Absolute Neutrophil Count 4.3 X10^3/uL (2.0-7.7); Basophil# 0.05 X10^3/uL; Basophil% 0.6 % (0-1); Eosinophil# 0.23 X10^3/uL; Eosinophils% 2.9 % (0-5); Hematocrit 35.1 % (40-54); Hemoglobin 11.8 g/dL (13.0-16.5); Lymphocyte # 2.44 X10^3/ul (0.83-4.51); Lymphocyte % 30.3 % (19-41); Mean Corp Hgb Conc 33.6 g/dL (32-36); Mean Corpuscular Hgb 31.8 pg (27.0-32.0); Mean Corpuscular Volume 94.6 fL (80-94); Mean Platelet Vol. 12.2 fl (6.2-12.0); Monocyte# 0.98 X10^3/uL; Monocyte% 12.2 % (0-10); NRBC Flagged by Analyzer 0 % (0-5); Neutrophil # 4.31 X10^3/uL (2.7-7.7); Neutrophil % 53.6 % (47-70); Platelet Count 169 K/mm3 (150-450); RBC Distribution Width SD 45.1 fl (35.1-43.9); Red Blood Count 3.71 M/mm3 (4.6-6.2)
[2021-10-31] MEDS: Lactulose 20 GM/30 ML UDC PO ×2 (20:09→21:34)
[2021-10-31 21:00] VITALS: BP 136/82; PULSE 60; RESP 18; TEMP 37.4; O2SAT 99
[2021-11-01 03:30] VITALS: BP 130/74; PULSE 62; RESP 18; TEMP 36.9; O2SAT 99
[2021-11-01] MEDS: oxyCODONE 5 MG Tablet PO ×2 (03:32→08:54)
[2021-11-01 05:19] LABS: Absolute Lymphocyte Count 2.93 X10^3/uL (0.83-4.51); Absolute Neutrophil Count 4.1 X10^3/uL (2.0-7.7); Basophil# 0.06 X10^3/uL; Basophil% 0.7 % (0-1); Eosinophil# 0.29 X10^3/uL; Eosinophils% 3.4 % (0-5); Hematocrit 34.5 % (40-54); Hemoglobin 11.6 g/dL (13.0-16.5); Lymphocyte # 2.93 X10^3/ul (0.83-4.51); Mean Corp Hgb Conc 33.6 g/dL (32-36); Mean Corpuscular Hgb 31.8 pg (27.0-32.0); Mean Corpuscular Volume 94.5 fL (80-94); Mean Platelet Vol. 12.4 fl (6.2-12.0); Monocyte# 1.19 X10^3/uL; Monocyte% 13.8 % (0-10); NRBC Flagged by Analyzer 0 % (0-5); Neutrophil # 4.11 X10^3/uL (2.7-7.7); Neutrophil % 47.8 % (47-70); Platelet Count 171 K/mm3 (150-450); RBC Distribution Width CV 12.6 % (11.6-14.6); RBC Distribution Width SD 43.9 fl (35.1-43.9); Red Blood Count 3.65 M/mm3 (4.6-6.2); White Blood Count 8.6 K/mm3 (4.4-11.0)
[2021-11-01] MEDS: Clindamycin 600 MG/50 ML BAG 100 MG IV (06:29)
--- NOTE | 2021-11-01 06:58 | PCM.HOSP.N ---
Hospitalist Note Vitals reviewed, labs reviewed, cultures reviewed. Thus far everything is stable from medical standpoint. We will sign off. Please call if new needs or concerns arise. Thank you.
[2021-11-01 08:49] VITALS: BP 134/92; PULSE 52; RESP 16; TEMP 36.8; O2SAT 98
[2021-11-01] MEDS: Sertraline 50 MG Tablet PO (08:54)
--- NOTE | 2021-11-01 11:48 | DCINST_ITS ---
Discharge Instructions Procedure Gallbladder Diet Discharge Diet: Light diet - advance as tolerated Activity Discharge Activity: May Not Drive (for 2-3 days or while taking narcotic pain medications.) and - (Do not drive, work heavy equipment or sign legal documents for 24 hours.) May shower in (days): 1 (with the bandage in place.) Additional Activity Instructions:: Pain medication may cause nausea. You should typically eat light foods as you take your pain medications. Pain medication may also cause constipation. If this is a problem for you, please discuss with your doctor. Dressing / Incision Call your doctor if your incision/area has: Continuous Slow Oozing, Sudden Increased Bleeding, Increased Pain/ Swelling, Increased Redness and Foul Sm elling Discharge Call your doctor if you observe: Fever of 101 or Higher Suture Line Care: Avoid Pulling/Pushing and Avoid Pinching/Bending Additional Dressing/Incision Instructions:: Leave operative bandaids on for 2 days. When you remove dressing, leave Steri-Strips on until your follow-up appointment, or until the Steri-Strips fall off on their own. Follow Up Care Please Follow Up With: Angélica Warner PA-C When: Call office to schedule an appointment to be seen in 7 days after surgery. Test Results: Test results from this visit will be discussed in further detail at your follow- up appointment, if applicable. Discharge Plan Admission Admit Date/Time: 10/30/21 14:12 Attending Provider: Jatinder Odonnell Primary Care Provider: [facility],[place] Consulting Providers: Jorje Loving Discharge Orders/Prescriptions Prescriptions: New oxycodone-acetaminophen [Percocet] 5-325 mg tablet 1 tab PO Q4H PRN (Reason: pain) 5 Days Qty: 20 0RF No Action sucralfate [Carafate] 1 gram tablet 1 g PO BID Qty: 30 0RF omeprazole 40 mg Capsule,Delayed Release(Dr/Ec) 40 mg PO DAILY sertraline 50 mg Tablet 50 mg PO DAILY ondansetron 4 mg tablet,disintegrating 4 mg PO Q8H PRN (Reason: Nausea) Referrals / Follow Up: Angélica Warner PA-C [Med Staff - Adv Practice Prof] - [facility] [Primary Care Provider] - Disposition Disposition (needs filled in before D/C Order can be placed): Home, Self Care
[2021-11-01 12:24] VITALS: BP 153/100; PULSE 78; RESP 18; TEMP 36.5; O2SAT 100
== END 2021-11-01 12:35 | disposition home or self-care (01) | DRG 419 ==
LOC: ED 22:58 → MS3 23:00
PROVIDERS: Admitting Provider Surgery; Emergency Provider Emergency Medicine; Visit Provider Surgery
PROC: (CPT 47610; principal; 2021-10-29 12:25)
DX: K80.00 Calculus of gallbladder with acute cholecystitis without obstruction (principal); K82.A1 Gangrene of gallbladder in cholecystitis; I10 Essential (primary) hypertension; F17.210 Nicotine dependence, cigarettes, uncomplicated; G47.30 Sleep apnea, unspecified; H91.92 Unspecified hearing loss, left ear; F32.A Depression, unspecified; F43.10 Post-traumatic stress disorder, unspecified; Z79.899 Other long term (current) drug therapy
CPT/HCPCS: 36415; 74176; 80053; 80076; 81001; 82150; 83690; 85025; 87070; 87075; 87205; 88304; 93005; 97802; 99251; 99283; 99406; J7030; J7120; A4216; G0463; J2405